=== PATIENT | male | born 1930 | race Caucasian/White ===

== ENCOUNTER 2019-01-11 13:12 | Observation (INO) ==
[2019-01-11] MEDS ORDERED: NS 500 ML IV ONE (13:33)
[2019-01-11 14:13] LABS: BASO# 0.03 X1000 (0.0-0.2); BASO% 0.3 % (0.0-0.8); EOS% 2.5 % (0.0-10.0); HEMATOCRIT 40.3 % (42.0-52.0); IMM GRAN# 0.04 X1000 (0.0-0.04); IMM GRAN% 0.3 % (0.0-0.5); LYMPH# 4.05 X1000 (1.2-3.4); LYMPH% 34.4 % (20.5-51.1); MCH 30.9 PG (27-31); MCHC 32.3 g/dL (33-37); MCV 95.7 FL (81-99); MONO# 0.85 X1000 (0.11-0.59); MONO% 7.2 % (1.7-9.3); MPV 9.2 FL (7.4-10.4); NEUT% 55.3 % (42.2-75.2); PLT 182 X1000 (130-400); RBC 4.21 XMIL (4.7-6.1); RDW 13.5 % (11.5-14.5); WBC 11.77 X1000 (4.8-10.8)
[2019-01-11 14:36] LABS: ALBUMIN 3.9 g/dL (3.5-5.0); CALCIUM 9.4 mg/dL (8.8-10.2); CREATININE 3.4 mg/dL (0.7-1.2); POTASSIUM 4.5 mmol/L (3.5-5.1); TOTAL BILIRUBIN 0.4 mg/dL (0.20-1.00); TOTAL PROTEIN 6.3 g/dL (6.3-8.3)
[2019-01-11 14:37] LABS: AMYLASE 45 U/L (20-200); CK PROFILE 104 U/L (24-204)
--- NOTE | 2019-01-11 14:44 | Diag Imaging Result Doc PS360 ---
EXAM: CT HEAD W/O CONTRAST - 01/11/2019 HISTORY: syncope TECHNIQUE: CT head without contrast COMPARISON: None. FINDINGS: There are some generalized atrophic changes. There are abmo-vy-siwlqqvd chronic appearing microvascular ischemic changes. There is a chronic appearing lacunar infarct near the superior margin of the basal ganglia on the left. There is no indication of recent infarct, although acute infarcts may not be immediately visible. There are bilateral basal ganglia calcifications consistent with chronic process. There is no evidence of intracranial hemorrhage, mass effect, or midline shift. There is no evidence of skull fracture. Visualized portions of paranasal sinuses and mastoid air cells appear clear. IMPRESSION: Atrophic changes and chronic ischemic changes. No visible acute intracranial abnormality. No hemorrhage or mass effect. This exam was performed using automated exposure control, adjustment of mA or kV according to patient size, and/or use of iterative reconstruction technique. Electronically signed by Kirk Townsend 01/11/2019 2:42 PM
[2019-01-11 15:25] LABS: BILIRUBIN URINE NEGATIVE (NEGATIVE); BLOOD URINE 1+ (NEGATIVE); CLARITY CLEAR (CLEAR); COLOR YELLOW; GLUCOSE URINE NEGATIVE (NEGATIVE); KETONE URINE TRACE mg/dL (NEGATIVE); LEUKOCYTES URINE TRACE (NEGATIVE); NITRITE URINE NEGATIVE (NEGATIVE); PH URINE 6.5; PROTEIN URINE 1+(30 mg/dL) mg/dL (NEGATIVE); UROBILINOGEN URINE NORMAL
[2019-01-11 15:27] LABS: URINE BACTERIA 1+ /HFP; URINE CAST NONE SEEN /LPF; URINE CRYSTAL NONE SEEN /HPF; URINE EPITHELIAL CELLS <10 /HPF (<10); URINE RBC <10 /HPF (<10); URINE SOURCE CLEAN CATCH; URINE WBC <10 /HPF (<10); URINE YEAST NONE SEEN /HPF
[2019-01-11] MEDS ORDERED: NS 1,000 ML IV ONE (15:46)
[2019-01-11] MEDS ORDERED: TYLENOL PO PRN (15:59)
[2019-01-11] MEDS ORDERED: ZOFRAN IV PRN (15:59)
--- NOTE | 2019-01-11 18:10 | PROVIDER DOCUMENTATION ---
This chart was entered by Anisha Leiva Scribe, acting as scribe for Reyna Barber MD. HPI-Syncope/Dizziness - General Chief Complaint: Dizziness Stated Complaint: ABNORMAL LABS Time Seen by Provider: 01/11/19 13:32 Source: patient Allergies/Adverse Reactions: Patient Allergies Allergy/AdvReac Type Severity Reaction Status Date / Time No Known Allergies Allergy Verified 01/11/19 13:27 Home Medications: Home Medication List Medication Instructions Recorded Confirmed Last Taken Type Gabapentin 300 mg PO BID 05/20/14 01/11/19 04/08/17 08:00 History Hydrochlorothiazide 12.5 mg PO DAILY 01/11/19 01/11/19 Unknown History Losartan Potassium 100 mg PO DAILY 01/11/19 01/11/19 Unknown History Metoprolol [Lopressor] 25 mg PO DAILY 01/11/19 01/11/19 Unknown History Spironolactone 25 mg PO DAILY 01/11/19 01/11/19 Unknown History - History of Present Illness-Syncope/Dizzy Nature of Presenting Problem: Patient is a 88 year old male who presents with son for syncope. Son states patient has been dizzy, weakness and have a poor appetite. Son reports symptoms are gradually worsening. Onset/Duration: reports: gradual Timing: reports: still present Symptoms prior to episode: reports: other (dizziness and weakness) Context: reports: unknown Loss of Consciousness: unsure Current Symptoms: reports: weakness, dizzy - Dizziness Severity in ED: reports: mild Dizziness Related Current/Associated Symptoms: reports: weakness, dizzy Review of Systems - Adult - REVIEW OF SYSTEMS - ADULT ROS:: ROS per family (son) Constitutional: reports: no symptoms reported Eyes: reports: no symptoms reported Ears, Nose, Mouth & Throat: reports: no symptoms reported Cardiovascular: reports: no symptoms reported Respiratory: reports: no symptoms reported Gastrointestinal: reports: see HPI, poor appetite. denies: abdominal pain, nausea, vomiting Genitourinary: reports: no symptoms reported Musculoskeletal: reports: see HPI, muscle weakness. denies: back pain, neck pain Integumentary: reports: no symptoms reported Neurological: reports: see HPI, dizziness/vertigo (dizziness), syncope. denies: headache/migraines Psychiatric: reports: no symptoms reported Endocrine: reports: no symptoms reported Hematologic/Lymphatic: reports: no symptoms reported Allergic/Immunologic: reports: no symptoms reported All Other Systems: Reviewed and Negative Past History - Adult - PAST MEDICAL HISTORY-ADULT Review of Records: reports: Old Records Reviewed, Nursing Assessment Review, Medications Reviewed, Social history reviewed & non-contributory. Major Childhood Illnesses: reports: denies history Cardiovascular: reports: HTN Respiratory: reports: denies history Gastrointestinal: reports: cancer, GERD Obstetrical/Gynecological: reports: denies history Genitourinary: reports: denies history Musculoskeletal: reports: denies history Neurological: reports: TIA Psychiatric: reports: denies history Endocrine/Immune: reports: denies history Other Conditions: reports: denies history - PRIOR SURGERIES/PROCEDURES Surgical/Procedure History: reports: reviewed, not pertinent - IMMUNIZATION STATUS Childhood Immunizations: See Nurse Assessment Flu Vaccine: See Nurse Assessment - FAMILY HISTORY Family History: reviewed, not pertinent - SOCIAL HISTORY Smoking: cigarettes (former) Substance Use: denies Physical Exam-General - PHYSICAL EXAM-ADULT Initial Vital Signs Reviewed: Yes - CONSTITUTIONAL General Appearance: appears well, alert, no apparent distress. negative: lethargic - HEAD, EARS, NOSE, MOUTH & THROAT HENMT: normocephalic/atraumatic, moist mucous membranes. negative: angioedema - RESPIRATORY Respiratory: chest non-tender, lungs clear, normal breath sounds. negative: crackles, stridor - CARDIOVASCULAR Cardiovascular: normal peripheral pulses, regular rate, rhythm. negative: tachycardia - GASTROINTESTINAL (ABDOMEN) Abdominal Exam: normal bowel sounds, non tender, soft. negative: guarding, rebound - MUSCULOSKELETAL Extremity: normal inspection. negative: deformity, erythema - SKIN Integumentary: normal color, normal turgor, warm/dry. negative: diaphoresis, jaundice, rash - NEUROLOGIC Neurologic: grossly normal. negative: aphasia, facial droop - PSYCHIATRIC Psych/Mental Status: normal mood/affect, oriented x 3. negative: anxious Progress - PLAN OF CARE/RESULTS Progress/Plan/Lab Results: Vital Signs - 8 hr 01/11/19 13:20 01/11/19 17:51 Temperature 97.7 F Pulse Rate 105 H 72 Respiratory Rate 18 24 Blood Pressure 125/76 155/102 O2 Sat by Pulse Oximetry 97 96 Laboratory Results - last 24 hr 01/11/19 01/11/19 01/11/19 14:00 14:00 14:00 WBC 11.77 H RBC 4.21 L Hgb 13.0 L Hct 40.3 L MCV 95.7 MCH 30.9 MCHC 32.3 L RDW Std Deviation 13.5 Plt Count 182 MPV 9.2 Immature Gran % (Auto) 0.3 Neut % (Auto) 55.3 Lymph % (Auto) 34.4 Island % (Auto) 7.2 Eos % (Auto) 2.5 Baso % (Auto) 0.3 Immature Gran # (Auto) 0.04 Neut # (Auto) 6.50 Lymph # (Auto) 4.05 H Island # (Auto) 0.85 H Eos # (Auto) 0.30 Baso # (Auto) 0.03 Sodium Potassium Chloride Carbon Dioxide Anion Gap BUN Creatinine Estimated GFR/1.73 m2 BUN/Creatinine Ratio Glucose POC Glucose Calculated Osmolality Calcium Total Bilirubin AST ALT Alkaline Phosphatase Creatine Kinase 104 Troponin T 0.013 Total Protein Albumin Globulin Albumin/Globulin Ratio Amylase 45 Lipase Urine Source Urine Color Urine Clarity Urine pH Ur Specific [place] Urine Protein Urine Ketones Urine Blood Urine Nitrite Urine Bilirubin Urine Urobilinogen Urine Microscopic RBC Urine WBC Urine Microscopic WBC Ur Epithelial Cells Urine Crystals Urine Bacteria Urine Casts Urine Yeast Urine Glucose 01/11/19 01/11/19 01/11/19 14:00 14:44 15:10 WBC RBC Hgb Hct MCV MCH MCHC RDW Std Deviation Plt Count MPV Immature Gran % (Auto) Neut % (Auto) Lymph % (Auto) Island % (Auto) Eos % (Auto) Baso % (Auto) Immature Gran # (Auto) Neut # (Auto) Lymph # (Auto) Island # (Auto) Eos # (Auto) Baso # (Auto) Sodium 142 Potassium 4.5 Chloride 107 Carbon Dioxide 23 L Anion Gap 12 BUN 38 H Creatinine 3.4 H Estimated GFR/1.73 m2 17 BUN/Creatinine Ratio 11 Glucose 131 H POC Glucose 115 H Calculated Osmolality 294 Calcium 9.4 Total Bilirubin 0.40 AST 16 ALT 12 Alkaline Phosphatase 81 Creatine Kinase Troponin T Total Protein 6.3 Albumin 3.9 Globulin 2.0 Albumin/Globulin Ratio 2.0 Amylase Lipase 44 Urine Source CLEAN CATCH Urine Color YELLOW Urine Clarity CLEAR Urine pH 6.5 Ur Specific [place] 1.020 Urine Protein 1+(30 mg/dL) A Urine Ketones TRACE Urine Blood 1+ A Urine Nitrite NEGATIVE Urine Bilirubin NEGATIVE Urine Urobilinogen NORMAL Urine Microscopic RBC <10 Urine WBC TRACE A Urine Microscopic WBC <10 Ur Epithelial Cells <10 Urine Crystals NONE SEEN Urine Bacteria 1+ Urine Casts NONE SEEN Urine Yeast NONE SEEN Urine Glucose NEGATIVE Orders Category Date Time Status Admit - [facility] Routine AdmDCTranf 01/11/19 15:57 Active Activity - Up with Assistance ORDERED Care 01/11/19 15:59 Active DVT/PE Risk Assess/Protocol [QM] ORDERED Care 01/11/19 15:59 Active Intake and Output-Strict ORDERED Care 01/11/19 15:59 Active Orthostatic Vital Signs NOW Care 01/11/19 13:27 Active Saline Loc DIRECTED Care 01/11/19 13:32 Active Vital Signs Order Q 6-HR ASSESS Care 01/11/19 15:59 Active Z-Document. for Tele Applied ORDERED Care 01/11/19 16:00 Active Heart Healthy Diet Diet 01/11/19 16:[address] HEAD W/O CONTRAST [CT] Stat Exams 01/11/19 14:15 Completed AMYLASE [CHEM] Stat Lab 01/11/19 14:00 Completed CBC WITH DIFF [HEME] DAILY Lab 01/12/19 06:00 Ordered CBC WITH DIFF [HEME] DAILY Lab 01/13/19 06:00 Ordered CBC WITH DIFF [HEME] DAILY Lab 01/14/19 06:00 Ordered CBC WITH ELECTRONIC DIFF [HEME] Stat Lab 01/11/19 14:00 Completed CK PROFILE [SP CHEM] Stat Lab 01/11/19 14:00 Completed COMPREHENSIVE METABOLIC PANEL [CHEM] Stat Lab 01/11/19 14:00 Completed LIPASE [CHEM] Stat Lab 01/11/19 14:00 Completed RENAL PROFILE [CHEM] DAILY Lab 01/12/19 06:00 Ordered RENAL PROFILE [CHEM] DAILY Lab 01/13/19 06:00 Ordered RENAL PROFILE [CHEM] DAILY Lab 01/14/19 06:00 Ordered RENAL PROFILE [CHEM] DAILY Lab 01/15/19 06:00 Ordered TROPONIN T Q6H Lab 01/11/19 16:30 Ordered TROPONIN T Q6H Lab 01/11/19 22:30 Ordered TROPONIN T Q6H Lab 01/12/19 04:30 Ordered TROPONIN T Stat Lab 01/11/19 14:00 Completed URINE CULTURE [RM] Routine Lab 01/11/19 15:27 Ordered ua [URINALYSIS PL W/POSS RFLX CULT] [URINALYSIS] Stat Lab 01/11/19 15:10 Completed 0.9% Sodium Chloride Inj [Ns] 1,000 ml Med 01/11/19 16:00 Active IV 75 mls/hr 0.9% Sodium Chloride Inj [Ns] 1,000 ml Med 01/11/19 15:46 Discontinued IV 999 mls/hr 0.9% Sodium Chloride Inj [Ns] 500 ml Med 01/11/19 13:33 Discontinued IV 999 mls/hr Acetaminophen [Tylenol] Med 01/11/19 15:59 Active 650 mg PO Q6H PRN PRN Heparin Med 01/11/19 16:00 Active 5,000 unit SUBQ Q12H Omeprazole [Prilosec] Med 01/12/19 07:00 Active 40 mg PO DAILY@0700 Ondansetron [Zofran] Med 01/11/19 15:59 Active 4 mg IV Q4H PRN PRN Telemetry [OM.EQ] Routine Oth 01/11/19 15:59 Active Carotid Ultrasound Routine Ther 01/11/19 16:02 Completed EKG [EKG] Stat Ther 01/11/19 13:28 Ordered Physical Therapy Eval/Treatment [OM.PT] Routine Ther 01/11/19 15:59 Active Transfer/Admit Order [TRANSFER] Routine Transfer 01/11/19 15:56 Ordered Result Diagrams: 01/11/19 14:00 01/11/19 14:00 - EKG 1 Time of EKG reading by physician:: 14:41 EKG Read and Signed by:: Reyna Barber EKG Interpretation (*Must complete 3 of following elements*): Abnormal Rate: 83 Rhythm: sinus rhythm with frequent premature ventricular complexes Mascot: normal QRS: RBB OH Interval: normal Comments: abnormal ECG - CT/MRI 1 CT Study: Head Impression: See EMR Report ( EXAM: CT HEAD W/O CONTRAST - 01/11/2019 HISTORY: syncope TECHNIQUE: CT head without contrast COMPARISON: None. FINDINGS: There are some generalized atrophic changes. There are qtva-oy-[id number] chronic appearing microvascular ischemic changes. There is a chronic appearing lacunar infarct near the superior margin of the basal ganglia on the left. There is no indication of recent infarct, although acute infarcts may not be immediately visible. There are bilateral basal ganglia calcifications consistent with chronic process. There is no evidence of intracranial hemorrhage, mass effect, or midline shift. There is no evidence of skull fracture. Visualized portions of paranasal sinuses and mastoid air cells appear clear. IMPRESSION: Atrophic changes and chronic ischemic changes. No visible acute intracranial abnormality. No hemorrhage or mass effect. This exam was performed using automated exposure control, adjustment of mA or kV according to patient size, and/or use of iterative reconstruction technique. Electronically signed by Kirk Townsend 01/11/2019 2:42 PM 01/11/19 1442 Interpreting Physician: Kirk Townsend MD Dictated Date/Time: 01/11/19 1438 cc: Reyna Barber MD; Carmen Ellis) - CONSULTS/PCP/HOSPITALIST Notification #1 *Consult/PCP/Hospitalist*: Dr. Astorga Time Discussed: 16:06 Reason/Comments: Dr. Barber consulted with Dr. Astorga about patient Departure - Departure Date of Disposition Decision: 01/11/19 Time of Disposition Decision: 18:09 DIAGNOSIS: Syncope Qualifiers: Syncope type: unspecified Qualified Code(s): R55 - Syncope and collapse Disposition: ADMITTED INPATIENT 09 Certified Medical Emergency: Emergent Condition: Good Referrals and Follow-Ups: Carmen Ellis [Primary Care Provider] - - Critical Care Note This patient required my direct & personal management of CC.: No Attestation - Physician/ CAROLYNN Attestation Patient care was provided by Advanced Practice Provider:: No The physician spent face to face time with patient:: Yes Advanced Practice Provider documentation review:: Supervising physician onsite and consulted in the evaluation and care of this patient. The physician did have a face to face encounter with the patient. This chart was documented by the indicated scribe, (Anisha Leiva Scribe) and accurately reflects the services I performed and decisions made by me, Reyna Barber MD, as attested by the provider's signature.
--- NOTE | 2019-01-11 18:28 | EKG Report ---
Test Performed on : 01/11/2019 2:41:13 PM Test Reason : dizziness Blood Pressure : / mmHG Vent. Rate : 083 BPM Atrial Rate : 083 BPM P-R Int : 132 ms QRS Dur : 124 ms QT Int : 412 ms P-R-T Axes : 040 065 035 degrees QTc Int : 484 ms Sinus rhythm. with frequent premature ventricular complexes. Right bundle branch block Abnormal ECG When compared with ECG of 20-MAY-2014 11:26, premature ventricular complexes. are now present aberrant conduction. is no longer present Right bundle branch block is now present Unconfirmed Result
--- NOTE | 2019-01-11 19:26 | Vascular Study Report ---
EXAM: Carotid Ultrasound INDICATION: syncope TECHNIQUE: COMPARISON: None. FINDINGS: Right: There is extensive atherosclerotic calcification involving the right carotid bulb as well as the proximal ECA. The peak systolic velocity measures 52, 99, 78, 186, 105, 49, and 202 cm/s at the right subclavian artery, CCA, bifurcation, proximal ICA, mid ICA, distal ICA, and ECA, respectively. There is antegrade flow in the vertebral artery. The carotid ratio is 1.88. Left: There is soft atherosclerotic plaque in the mid left ICA that appears to be approximately 50% narrowing by grayscale imaging. The peak systolic velocity measures the peak systolic velocity measures 179, 79, 78, 50, 101, 58, and 138 cm/s at the left subclavian artery, CCA, bifurcation, proximal ICA, mid ICA, distal ICA, and ECA, respectively. There is antegrade flow in the vertebral artery. The carotid ratio is 1.27. IMPRESSION: 1.Extensive atherosclerotic calcification at the right carotid bulb with an estimated 60-79% stenosis based on flow dynamics. 2.Soft atherosclerotic plaque at the mid left ICA with approximately 50% luminal narrowing based on grayscale imaging. Electronically signed by Marino Hu 01/11/2019 7:24 PM
--- NOTE | 2019-01-11 21:34 | HISTORY AND PHYSICAL ---
PRIMARY CARE PROVIDERS: RAMON Beltran, and Radha Ellis MD. ONCOLOGIST IN THE PAST: Dr. Tellez. CHIEF COMPLAINT: Increased sleepiness, decreased appetite. HISTORY OF PRESENT ILLNESS: Mr. Davin Morrison is an 88-year-old male with a medical history of TIA and bilateral carotid endarterectomy. Also with history of CKD and an atrophic left kidney, which is a poorly functioning kidney. He presents to [facility] ER with complaints of increasing sleep and decrease in his appetite for at least 3 to 4 weeks. He has also had some complaints of dizziness, some near falls and balance issues along with black diarrhea stools at night, which he states that is somewhat resolving. The son at the bedside states he does not take in a whole lot of fluids, only about 1 bottle of water per day. He admits to having weight loss, at least 15 pounds in the last month. Has some left ankle swelling, but that tends to be chronic, so really he has acute kidney injury on CKD secondary to dehydration, probably adding to his lightheadedness and dizziness and near fall spells. Creatinine currently is 3.4. His baseline tends to run around 2.1 to 2.3. He denies having any shortness of breath or coughing up any phlegm. No nausea or vomiting. No fever or chills. No other complaints at all. PAST MEDICAL HISTORY: 1. Carotid stenosis with bilateral carotid endarterectomy. 2. Abdominal lymphoma diagnosed in 2010, treated with chemo and radiation. 3. Colon cancer in 1984 with colectomy. 4. Vitamin B12 deficiency. Receives shots every Tuesday for 3 months now. 5. 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 6. Hypertension. 7. TIA with no residual. That was in the . 8. 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 9. GERD. 10. 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 SOCIAL HISTORY: Quit smoking in 1984, but prior to that he was a 2-yirg-orb-day smoker since his early 20s. No chewing tobacco. Rarely drinks wine but does only if family buys it for him, which is not very often. Denies any illicit drug use. He is retired from [employer]. He is ex [employer]. Was in the [place] War at 1 time. FAMILY HISTORY: Mother: No medical conditions. Father had heart disease in his 60s. ALLERGIES: No known drug allergies. HOME MEDICATIONS: Not reconciled, but were listed as aspirin, Neurontin, pravastatin, and timolol. REVIEW OF SYSTEMS: Fourteen-point review of systems is completed, and all are negative except for those mentioned above in the HPI. PHYSICAL EXAMINATION: VITAL SIGNS: Temperature 97.7, heart rate 105, respiratory rate 18, blood pressure 125/76, O2 saturation 97% on room air. He is 5 feet 10 inches tall, weight 196 pounds. BMI is 28.1. GENERAL: Mr. Davin Morrison is an 88-year-old male. He is in no acute distress.. He is able answer questions appropriately, mostly. There are some questions he seems like he is not quite 100% on. HEENT: Atraumatic, normocephalic. The right pupil is constricted. Left pupil is about a 4 and is reactive. Extraocular movements intact. Mucous membranes are dry. NECK: Trachea midline. CARDIOVASCULAR: S1, S2. Regular rate and rhythm. No rubs, gallops, murmurs. No lower extremity edema. Has +2 dorsalis and radial pulses. Negative JVD or carotid bruits. PULMONARY: Clear to auscultation. Bilateral breath sounds. No accessory muscle use or work of breathing noted. GI: Soft, nontender, nondistended. Positive bowel sounds x4. EXTREMITIES: Moves all extremities equally. Decreased range of motion. NEUROLOGIC: A and O x3. Follows commands. Sensory is intact except for the left lower extremity. He says late in the evenings he gets a little numbness in the left lower extremity and currently is experiencing that right now. SKIN: Warm, dry, intact. LABORATORY DATA: White blood cells 11,000, hemoglobin 13, hematocrit 40, platelet count 182,000. Sodium 142, potassium 4.5, BUN 38, creatinine 3.4, glucose 131, calcium 9.4. Bilirubin 0.40, AST 16, ALT 12. CK 104, troponin 0.013. Albumin 3.9. Amylase 45, lipase 44. Urinalysis: 1+ protein, 1+ blood, trace white blood cells, 1+ bacteria. IMAGING: Head CT: Atrophic changes and chronic ischemic changes. No visible acute intracranial abnormality. It did show there is a chronic-appearing lacunar infarct near the superior margin of the basal ganglia on the left. ASSESSMENT AND PLAN: 1. Currently complains of increase in sleepiness and decrease in appetite with a weight loss. It is really unclear what could be causing this. It may possibly even some metabolic encephalopathy, as he has become dehydrated and developed acute kidney injury. 2. Acute kidney injury with chronic kidney disease stage 3. He will get IV fluid hydration for this. We will hold any nephrotoxic medications. 3. Dehydration. He will be on IV fluids. 4. History of cerebrovascular accident and transient ischemic attack in the past along with bilateral carotid endarterectomies. Neurologic exam is currently normal. No abnormalities found, other than he does have a little bit of numbness in the left lower extremity. 5. History of abdominal lymphoma along with colon cancer in the past. 6. Hypertension. Continue home medications. 7. 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 8. Gastroesophageal reflux disease. 9. Deep venous thrombosis prophylaxis, sequential compression devices. Dictated by RAMON Hawkins for Ulises Lomax MD Addendum: Patient seen and examined by myself. Agree with RAMON note. It reflects my assessment and plan. Patient is being admitted to hospital for acute on chronic kidney disease most likely due to volume depletion so will start IV fluids and check BMP daily. cc: RAMON Hawkins MD [facility]
[2019-01-11] MEDS: NEURONTIN PO SCH (23:03)
[2019-01-11] MEDS: NS 1,000 ML IV SCH (23:07)
[2019-01-11] MEDS: TIMOPTIC 0.5% OPH SOLUTION BOTH EYES SCH (23:07)
[2019-01-12] MEDS: HEPARIN SUBQ SCH ×2 (04:11→04:15)
[2019-01-12 04:27] LABS: BASO# 0.04 X1000 (0.0-0.2); BASO% 0.4 % (0.0-0.8); EOS# 0.45 X1000 (0.0-0.7); EOS% 4.3 % (0.0-10.0); HEMATOCRIT 39.1 % (42.0-52.0); HEMOGLOBIN 12.4 g/dL (14.0-18.0); IMM GRAN# 0.01 X1000 (0.0-0.04); IMM GRAN% 0.1 % (0.0-0.5); LYMPH# 4.86 X1000 (1.2-3.4); LYMPH% 46.2 % (20.5-51.1); MCH 30.4 PG (27-31); MCHC 31.7 g/dL (33-37); MCV 95.8 FL (81-99); MONO# 0.67 X1000 (0.11-0.59); MONO% 6.4 % (1.7-9.3); MPV 9.1 FL (7.4-10.4); NEUT% 42.6 % (42.2-75.2); PLT 174 X1000 (130-400); RBC 4.08 XMIL (4.7-6.1); RDW 13.3 % (11.5-14.5); WBC 10.53 X1000 (4.8-10.8)
[2019-01-12 05:37] LABS: ALBUMIN 3.6 g/dL (3.5-5.0); PHOSPHORUS 3.5 mg/dL (2.7-4.5)
[2019-01-12 06:27] LABS: CREATININE 2.7 mg/dL (0.7-1.2)
[2019-01-12 06:47] LABS: POTASSIUM 4.6 mmol/L (3.5-5.1)
[2019-01-12] MEDS ORDERED: PRILOSEC PO SCH (07:00)
[2019-01-12 08:00] VITALS: BP 177/74
[2019-01-12] MEDS ORDERED: ASPIRIN EC PO SCH (09:00)
[2019-01-12] MEDS ORDERED: PRAVACHOL PO SCH (09:00)
[2019-01-12] MEDS: TIMOPTIC 0.5% OPH SOLUTION BOTH EYES SCH (10:37)
[2019-01-12] MEDS: NEURONTIN PO SCH (10:39)
[2019-01-12] MEDS: NS 1,000 ML IV SCH (10:39)
--- NOTE | 2019-01-12 17:56 | ECHO REPORT ---
ORDER DATE: 01/11/2019 INDICATION: Syncope, irregular heartbeat. M-MODE MEASUREMENTS: Left ventricle end diastole: 4.0. Left ventricle end systole: 1.8. Posterior wall: 1.0. Interventricular septum: 1.0. Left atrium: 2.6. Aortic diameter: 3.5. SUMMARY OF 2-DIMENSIONAL IMAGIN. Left ventricular function is normal. Ejection fraction is estimated at 65% to 70%. The cardiac cycles are somewhat irregular. The patient seems to have frequent PACs. 2. The aortic valve appears to be unremarkable. Color flow mapping within normal range. 3. The pulmonic valve also is probably unremarkable. There is a mild to moderate degree of regurgitation. 4. Pulmonary diastolic pressure appears to be on the order of 17 mmHg. 5. The aortic valve has 3 cusps. Color flow mapping unremarkable. 6. The mitral valve looks grossly normal. Color flow mapping unremarkable. 7. Pulsed wave Doppler of mitral inflow shows reversal of the E/A ratio. 8. Tissue Doppler of septal and lateral mitral annulus averages 6 cm. There is no definite diastolic dysfunction. 9. Pulmonary venous flow appears to be normal. 10.The atria appear to be normal. 11.The right-sided chambers appear to be slightly generous in size, especially the right ventricle and right atrium. 12.The tricuspid valve shows a minimal degree of regurgitation. Pulmonary pressure appears to be grossly within normal limits. 13.Optison was injected to optimize visualization of the endocardium. That confirmed that the left ventricular ejection fraction is excellent. 13.There are no masses and no thrombus. Clinical correlation recommended. cc: MD Ulises Boo MD
--- NOTE | 2019-01-13 06:16 | DISCHARGE SUMMARY ---
ADMISSION DATE: 01/11/2019 DISCHARGE DATE: 01/12/2019 ADMISSION DIAGNOSES: 1. Currently, complains of increased sleepiness and decreased appetite with a weight loss, possible metabolic encephalopathy. 2. Acute kidney injury with chronic kidney disease stage 3. 3. Dehydration. 4. History of cerebrovascular accident and transient ischemic attack in the past. 5. 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 6. Hypertension. 7. 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 8. Gastroesophageal reflux disease. DISCHARGE DIAGNOSES: 1. Still complaints of sleepiness, and decreased appetite weight loss, but that he actually feels a little more alert today. 2. Acute kidney injury with chronic kidney disease stage 3, improved. 3. Dehydration. Intravenous fluids improved this as well. CONSULTATIONS: None. SURGERIES AND PROCEDURES: None. HOSPITAL COURSE: Mr. Davin Morrison is an 88-year-old male presented to the emergency room here at [facility] with complaints of increasing sleepiness and decreased appetite for at least 3 to 4 weeks. He also has some complaints of dizziness, some near falls, and balance issues with black diarrhea stools at night which that apparently had already started resolving. Son at the bedside states that he does not really have a whole lot of fluid intake, maybe only 1 bottle of water a day. Also, he complains of 15 pound weight loss in the past month. Left ankle swelling that is chronic, but presents with dehydration and acute kidney injury on CKD. He received IV fluid hydration. He is feeling better, and he is going to be discharged. DISCHARGE VITAL SIGNS: Temperature 97.8 degrees, heart rate 75, respiratory rate 20, blood pressure 177/74, and O2 saturation 98% on room air. DISCHARGE LABORATORY DATA: White blood cells 10,000, hemoglobin 10, hematocrit 39, and platelet count 174,000. Sodium 143, potassium 4.6, BUN 28, creatinine 2.7, glucose 113, calcium 9.0, and phosphorus 3.5. Troponin is less than 0.01. Albumin 3.6. Urinalysis: Urine culture negative. IMAGIN. Head CT negative for any acute findings. 2. Carotid ultrasound 60 to 79 percent of the right carotid, 50% on left carotid. 3. EKG sinus rhythm with PVCs, rate 83, and QTc 484. DISCHARGE MEDICATIONS: 1. Neurontin 300 mg p.o. twice daily. 2. Hydrochlorothiazide 12.5 mg p.o. daily. 3. Metoprolol 25 mg p.o. daily. 4. Losartan potassium 100 mg p.o. daily. 5. Spironolactone 25 mg p.o. daily. 6. Aspirin 81 mg p.o. daily. DISCHARGE DIET: Heart healthy. DISCHARGE ACTIVITY: As tolerated with home health physical therapy. DISCHARGE PHYSICIAN FOLLOW UP: Dr. Ellis. DISCHARGE INSTRUCTIONS: If your condition changes, contact physician and/or return to the emergency department. Changes may include, but not limited to shortness of breath, increased fatigue, excessive bleeding, unexplained weight loss or gain, unmanageable pain, signs or symptoms of infection. DISCHARGE DISPOSITION: Home with home health. Dictated by RAMON Hawkins for Ulises Lomax MD Addendum: patient seen and examined by myself. Agree with RAMON note. It reflects my assessment and plan. Patient is being discharged in stable condition. Will be seen by PCP in a week. cc: RAMON Hawkins MD [facility]
== END 2019-01-12 17:46 | disposition home health service (06) ==
LOC: P.ED 13:12 → P.MEDSURG 13:12
PROVIDERS: ATTEND Internal Medicine

== ENCOUNTER 2019-02-27 12:17 | Observation (INO) ==
[2019-02-27 13:32] LABS: BASO# 0.04 X1000 (0.0-0.2); BASO% 0.4 % (0.0-0.8); EOS% 3.2 % (0.0-10.0); HEMATOCRIT 40.1 % (42.0-52.0); HEMOGLOBIN 12.5 g/dL (14.0-18.0); IMM GRAN# 0.03 X1000 (0.0-0.04); IMM GRAN% 0.3 % (0.0-0.5); LYMPH# 3.36 X1000 (1.2-3.4); LYMPH% 36.2 % (20.5-51.1); MCH 29.7 PG (27-31); MCHC 31.2 g/dL (33-37); MCV 95.2 FL (81-99); MONO# 0.61 X1000 (0.11-0.59); MONO% 6.6 % (1.7-9.3); NEUT# 4.94 X1000 (1.4-6.5); NEUT% 53.3 % (42.2-75.2); PLT 182 X1000 (130-400); RBC 4.21 XMIL (4.7-6.1); RDW 13.7 % (11.5-14.5); WBC 9.28 X1000 (4.8-10.8)
[2019-02-27] MEDS ORDERED: NS 500 ML IV ONE (13:36)
[2019-02-27 13:50] LABS: ALBUMIN 4.1 g/dL (3.5-5.0); CALCIUM 9.1 mg/dL (8.8-10.2); CREATININE 1.8 mg/dL (0.7-1.2); POTASSIUM 4.5 mmol/L (3.5-5.1); TOTAL BILIRUBIN 0.5 mg/dL (0.20-1.00); TOTAL PROTEIN 6.6 g/dL (6.3-8.3)
--- NOTE | 2019-02-27 14:08 | EKG Report ---
Test Performed on : 02/27/2019 1:02:21 PM Test Reason : weakness Blood Pressure : / mmHG Vent. Rate : 070 BPM Atrial Rate : 070 BPM P-R Int : 140 ms QRS Dur : 130 ms QT Int : 452 ms P-R-T Axes : 040 065 050 degrees QTc Int : 488 ms Normal sinus rhythm. Right bundle branch block Abnormal ECG When compared with ECG of 11-JAN-2019 14:41, (Unconfirmed) premature ventricular complexes. are no longer present Unconfirmed Result
[2019-02-27 15:31] LABS: URINE SOURCE CLEAN CATCH
[2019-02-27 15:32] LABS: BILIRUBIN URINE NEGATIVE (NEGATIVE); BLOOD URINE NEGATIVE (NEGATIVE); COLOR YELLOW; GLUCOSE URINE NEGATIVE (NEGATIVE); KETONE URINE NEGATIVE (NEGATIVE); LEUKOCYTES URINE NEGATIVE (NEGATIVE); NITRITE URINE NEGATIVE (NEGATIVE); PROTEIN URINE TRACE mg/dL (NEGATIVE); SP GRAVITY URINE 1.019; TURBIDITY URINE CLEAR (CLEAR); UROBILINOGEN URINE NORMAL (NORMAL)
[2019-02-27 15:34] LABS: UR EPITHELIAL CELLS <10 /HPF (<10); URINE BACTERIA NEGATIVE /HPF; URINE RBC <10 /HPF (<10); URINE WBC <10 /HPF (<10)
[2019-02-27] MEDS ORDERED: LABETALOL IV ONE (16:05)
[2019-02-27] MEDS ORDERED: ZOFRAN IV PRN (16:10)
[2019-02-27 16:54] LABS: TSH 2.12 uIUmL (0.27-4.20)
[2019-02-27] MEDS ORDERED: APRESOLINE IV ONE (16:59)
--- NOTE | 2019-02-27 18:08 | PROVIDER DOCUMENTATION ---
This chart was entered by Salina Martinez Scribe, acting as scribe for Reyna Mo MD. HPI-General Adult - General Chief Complaint: Altered Mental Status Stated Complaint: DEHYDRATED Time Seen by Provider: 02/27/19 12:35 Source: patient, family Allergies/Adverse Reactions: Patient Allergies Allergy/AdvReac Type Severity Reaction Status Date / Time No Known Allergies Allergy Verified 02/27/19 13:18 Home Medications: Home Medication List Medication Instructions Recorded Confirmed Last Taken Type Gabapentin 300 mg PO BID 05/20/14 02/27/19 01/11/19 08:30 History Losartan Potassium 100 mg PO DAILY 01/11/19 02/27/19 01/11/19 08:30 History Metoprolol [Lopressor] 12.5 mg PO DAILY 01/11/19 02/27/19 01/11/19 08:30 History Aspirin EC 81 mg PO QAM tab 01/12/19 02/27/19 Unknown Rx Donepezil HCl 5 mg PO DAILY 02/27/19 02/27/19 Unknown History - History of Present Illness -Gen Adult Nature of Presenting Problems: 88 yowm presents to the ed with his family. family sts pt has had increasing am s, weakness, fatigue, decreased appetite and believe he is dehydrated. pt has hx of UTI and same sx when it occurs. pt on exam is back to a/o x3 and in no distress. Location of Pain/Injury: reports: none Pain Radiation: reports: no radiation Quality of Pain: reports: none Severity: reports: mild Onset/Duration: reports: gradual Timing: reports: intermittent Context/Activities at Onset: reports: light activity Modifying Factors: improves with: nothing Associated Symptoms: reports: fatigue, malaise, weakness, trouble walking (due to fatigue), other (confusion). denies: back/neck pain, chest pain, cough, dizziness, fever/chills, nausea, shortness of breath, syncope, vomiting Similar Symptoms Previously?: Yes (freq UTI) Recently seen or treated by another doctor?: No Review of Systems - Adult - REVIEW OF SYSTEMS - ADULT Constitutional: reports: see HPI, nicole. denies: chills, fever Eyes: reports: no symptoms reported Ears, Nose, Mouth & Throat: reports: no symptoms reported Cardiovascular: reports: see HPI, edema (BLE edema). denies: chest pain, palpitations Respiratory: denies: shortness of breath, wheezing Gastrointestinal: reports: see HPI, poor appetite. denies: abdominal pain, diarrhea, nausea, vomiting Genitourinary: reports: see HPI, frequent UTI's Musculoskeletal: reports: see HPI, muscle weakness (genrealized). denies: back pain, neck pain Integumentary: reports: no symptoms reported Neurological: reports: see HPI, paresthesia (BLE). denies: dizziness/vertigo, headache/migraines Psychiatric: reports: no symptoms reported Endocrine: reports: no symptoms reported Hematologic/Lymphatic: reports: no symptoms reported Allergic/Immunologic: reports: no symptoms reported All Other Systems: Reviewed and Negative Past History - Adult - PAST MEDICAL HISTORY-ADULT Review of Records: reports: Old Records Reviewed, Nursing Assessment Review, Medications Reviewed, Social history reviewed & non-contributory. Major Childhood Illnesses: reports: denies history Cardiovascular: reports: HTN Respiratory: reports: denies history Gastrointestinal: reports: cancer (colon/rectal), GERD Genitourinary: reports: denies history Musculoskeletal: reports: denies history Hand Dominance: Right Handed Neurological: reports: TIA Psychiatric: reports: denies history Endocrine/Immune: reports: denies history Other Conditions: reports: denies history - PRIOR SURGERIES/PROCEDURES Surgical/Procedure History: reports: reviewed, not pertinent - IMMUNIZATION STATUS Childhood Immunizations: See Nurse Assessment Flu Vaccine: See Nurse Assessment - FAMILY HISTORY Family History: reviewed, not pertinent - SOCIAL HISTORY Smoking: quit greater than 1 year Substance Use: denies Alcohol Use Frequency: never Living Situation: family Physical Exam-General - PHYSICAL EXAM-ADULT Initial Vital Signs Reviewed: Yes (noted BP-170/127) - CONSTITUTIONAL General Appearance: appears well, alert, no apparent distress (pt on exam is back to baseline but sx have been intermittent) - EYES Eyes: PERRL/EOMI, pink conjunctivae - HEAD, EARS, NOSE, MOUTH & THROAT HENMT: normocephalic/atraumatic. negative: moist mucous membranes (dry oral) - NECK Neck: non-tender, full range of motion, normal inspection - RESPIRATORY Respiratory: chest non-tender, lungs clear, normal breath sounds, increased rate (22) - CARDIOVASCULAR Cardiovascular: normal peripheral pulses, regular rate, rhythm - CHEST (BREASTS) Chest/Breast: deferred - GASTROINTESTINAL (ABDOMEN) Abdominal Exam: normal bowel sounds, non tender, soft - GENITOURINARY Male Genitalia: deferred Rectal Exam: deferred Hemoccult Exam: deferred - LYMPHATIC Lymphatic: no adenopathy - MUSCULOSKELETAL Back Exam: normal inspection, no CVA tenderness, no vertebral tenderness Extremity: normal range of motion, non-tender, swelling (1+ BLE edema). negative: tenderness - SKIN Integumentary: normal color, normal turgor, warm/dry - NEUROLOGIC Neurologic: grossly normal - PSYCHIATRIC Psych/Mental Status: normal mood/affect, normal thought content, normal thought process, oriented x 3 Progress - PLAN OF CARE/RESULTS Progress/Plan/Lab Results: Vital Signs - 8 hr 02/27/19 12:25 Temperature 97.3 F L Pulse Rate 74 Respiratory Rate 22 Blood Pressure 170/127 O2 Sat by Pulse Oximetry 97 Laboratory Results - last 24 hr 02/27/19 12:32 POC Glucose 103 Orders Category Date Time Status Saline Loc NOW Care 02/27/19 12:43 Active CBC WITH DIFF [HEME] Stat Lab 02/27/19 12:43 Uncollected CK PROFILE [SP CHEM] Stat Lab 02/27/19 12:43 Ordered COMPREHENSIVE METABOLIC PANEL [CHEM] Stat Lab 02/27/19 12:43 Uncollected PRO B-NATRIURETIC PEPTIDE Stat Lab 02/27/19 12:43 Uncollected TROPONIN T Stat Lab 02/27/19 12:43 Ordered EKG [EKG] Stat Ther 02/27/19 12:43 Ordered Result Diagrams: 02/27/19 13:10 02/27/19 13:10 - REASSESSMENT Reassessment #1 Time Reassessed: 14:18 (elevated BP still noted and dr mo is at bedside) Status: unchanged Reassessment #2 Time Reassessed: 15:00 (dr mo at bedside and speaking with pt and family about poc) Status: unchanged - EKG 1 Time of EKG reading by physician:: 13:02 EKG Read and Signed by:: Reyna Mo EKG Interpretation (*Must complete 3 of following elements*): Abnormal Rate: 70 Rhythm: nsr [place]: normal QRS: RBB OR Interval: normal ST Wave: normal - CONSULTS/PCP/HOSPITALIST Notification #1 *Consult/PCP/Hospitalist*: hospitalist dr larson Time Discussed: 15:58 (spoke with guille) Consult Disposition: Admit Departure - Departure Date of Disposition Decision: 02/27/19 Time of Disposition Decision: 15:03 DIAGNOSIS: Generalized weakness HTN (hypertension) Qualifiers: Hypertension type: unspecified Qualified Code(s): I10 - Essential (primary) hypertension Disposition: ADMITTED INPATIENT 09 Certified Medical Emergency: Emergent Condition: Good Referrals and Follow-Ups: Radha Ellis MD [Primary Care Provider] - - Critical Care Note This patient required my direct & personal management of CC.: Yes Total Time (mins): 37 Critical Care Statement: This patient required my direct personal management to treat or rule out processes, the absence of which, could potentiallly result in sudden, clinically significant life or limb threatening deterioration. Attestation - Physician/ CAROLYNN Attestation Patient care was provided by Advanced Practice Provider:: No The physician spent face to face time with patient:: Yes Advanced Practice Provider documentation review:: Supervising physician onsite and consulted in the evaluation and care of this patient. The physician did have a face to face encounter with the patient. This chart was documented by the indicated scribe, (Salina Martinez Scribe) and accurately reflects the services I performed and decisions made by me, Reyna Mo MD, as attested by the provider's signature.
[2019-02-27] MEDS ORDERED: APRESOLINE IV PRN (18:30)
--- NOTE | 2019-02-27 19:15 | Diag Imaging Result Doc PS360 ---
EXAM: FLAT/UPRIGHT ABD/1 VIEW CHEST - 02/27/2019 HISTORY: weakness, recent URI, diarrhea TECHNIQUE: Portable supine and upright abdomen one view chest COMPARISON: 04/20/2017 chest two views FINDINGS: The bowel gas pattern appears nonspecific and nonobstructive. There is no free air identified. There is a surgical clip at the right upper quadrant. Upright chest shows stable borderline cardiomegaly. There are stable left midlung granuloma from old granulomatous disease. There is pleural thickening at the left base. There is no acute consolidation, substantial pleural effusion, or pneumothorax identified. IMPRESSION: Nonspecific bowel gas pattern. No discrete evidence of acute cardiopulmonary disease. Electronically signed by Kirk Townsend 02/27/2019 7:13 PM
[2019-02-27] MEDS: NEURONTIN PO SCH (20:42)
--- NOTE | 2019-02-28 01:52 | HISTORY AND PHYSICAL ---
CHIEF COMPLAINT: Generalized weakness, confusion. HISTORY OF PRESENT ILLNESS: This is an 88-year-old gentleman with a history of hypertension, colon cancer in 1988, status post colon resection and radiation and dementia. He presents to the emergency room with his children complaining of weakness, inability to stand and walk, and diarrhea over the last 2 to 3 days. The patient is unable to give a detailed history, so the son and daughter assist in the interview. Mr. Morrison was diagnosed with an upper respiratory infection about 2 to 3 weeks ago. He was given antibiotics per his primary care physician and the family stated that he seemed to be doing better, but Tuesday he was unable to stand and walk. The son states he was having to pick him up without his walker and much assistance. Over the last 36 hours, he has become increasingly confused and more weak. The son stated he had to pick him up and put him to bed last night, although a few hours later he was able to get out of bed with assistance. He stated that they began to notice his confusion, stating that he tried to walk into a closet to urinate. He was unsure where the bathroom was in his home. As this has progressed, they brought him in for evaluation. They do report that he has had some diarrhea over the last month, it has not been consistent and they denied any black or bloody stools. He has had some incontinence and because of this, he has had some irritation to the folds of his buttocks. PAST MEDICAL HISTORY: 1. Chronic kidney disease stage 3. 2. History of CVA and TIA in the past. 3. Abdominal lymphoma and colon cancer status post colon resection and radiation. 4. Hypertension. 5. Chronic right eye blindness. 6. Gastroesophageal reflux disease. 7. Vitamin B12 deficiency, receiving shots every Tuesday per his primary care physician. PAST SURGICAL HISTORY: 1. Bilateral carotid endarterectomy. 2. Partial colectomy in 1984. SOCIAL HISTORY: He quit smoking in 1984. He does not use smokeless tobacco. He lives with his , but has children that are close and very active in his care. They deny any illicit drug use, any alcohol use. He is retired from the [employer], he was in the [place]. FAMILY HISTORY: Father had heart disease, in his 60s. They do have a history of hypertension. ALLERGIES: No known drug allergies. HOME MEDICATIONS: A list will be obtained by the nursing staff. Once verified, will review and restart as appropriate. REVIEW OF SYSTEMS: Discussed with patient and children with pertinent positives stated in the HPI. He denied any syncope or dizziness, any chest pain or palpitations, shortness of breath, cough, any fevers or chills, any nausea, vomiting, any constipation, black or bloody vomitus or stools, any hematuria, dysuria. He does report some urinary incontinence, which has been present for many years. LABS: WBC is 9.2 with a hemoglobin of 12.5, hematocrit 40.1, and platelets of 182,000. Sodium 143, potassium 4.5, BUN 24, creatinine 1.8, with a glucose of 103. Urinalysis is essentially negative. EKG reveals sinus rhythm with a right bundle branch block, which is present on prior EKGs. ASSESSMENT AND PLAN: 1. Altered mental status. Causes could be multifactorial. He does have a history of dementia. He has also recently been treated for upper respiratory. He will be admitted, placed on neuro checks. We will trend labs. 2. Generalized weakness with inability to stand and walk. We will consult Physical Therapy. He will be placed on fall precautions. 3. Hypertension. Blood pressures have begun to decrease using hydralazine. We will order hydralazine 10 q.4 hours p.r.n. systolic blood pressure greater than 160. Continue his home medications once they are verified. 4. Chronic kidney disease stage 3. We will trend labs daily. Renal dose medications as appropriate. 5. History of transient ischemic attack and cerebrovascular accident. Aware. 6. Diarrhea. The patient is unsure about his last bowel movement. We will obtain a flat and upright of the abdomen. 7. History of vitamin B12 deficiency. 8. History of colon cancer and abdominal lymphoma status post partial colectomy. Aware. We will obtain a chest x-ray. We will continue his home medications as appropriate. Check a ferritin, folate, TSH and vitamin B12. Check CBC, CMP and magnesium in the morning. Will consult Physical Therapy. He will be placed on telemetry. Check bladder scan. Patient was evaluated, plan was discussed with Dr. Aguilar. Further treatments pending hospital course. Dictated by RAMON Swanson for Neil Aguilar MD cc: KimberlyRAMON Barnes MD
--- NOTE | 2019-02-28 01:58 | HISTORY AND PHYSICAL ---
ADDENDUM: Patient seen and examined by myself. Full note dictated and discussed with nurse practitioner. Patient presented to the hospital via his children noting that he is acutely confused, disoriented. They state normally he is awake, alert, lives at home by himself, takes care of himself and monitors his own medications. However, over the last 2 days, he has been increasingly confused, disoriented, been having urinary accidents. We are going to admit him to the hospital. Blood pressures were markedly elevated initially at 226/120. Currently, they are improving at 200/100. He does have a history of high blood pressure. I am certainly concerned that he may have a urinary tract infection. We are going to treat for same, send for a culture and will follow. cc: Neil Aguilar MD
[2019-02-28 05:09] LABS: BASO# 0.04 X1000 (0.0-0.2); BASO% 0.4 % (0.0-0.8); EOS# 0.33 X1000 (0.0-0.7); EOS% 3.5 % (0.0-10.0); HEMATOCRIT 36.9 % (42.0-52.0); HEMOGLOBIN 11.5 g/dL (14.0-18.0); IMM GRAN# 0.03 X1000 (0.0-0.04); IMM GRAN% 0.3 % (0.0-0.5); LYMPH# 3.62 X1000 (1.2-3.4); LYMPH% 38.7 % (20.5-51.1); MCH 29.8 PG (27-31); MCHC 31.2 g/dL (33-37); MCV 95.6 FL (81-99); MONO# 0.71 X1000 (0.11-0.59); MONO% 7.6 % (1.7-9.3); MPV 8.7 FL (7.4-10.4); NEUT# 4.63 X1000 (1.4-6.5); NEUT% 49.5 % (42.2-75.2); PLT 161 X1000 (130-400); RBC 3.86 XMIL (4.7-6.1); RDW 13.6 % (11.5-14.5); WBC 9.36 X1000 (4.8-10.8)
[2019-02-28 05:21] LABS: ALBUMIN 3.3 g/dL (3.5-5.0); CALCIUM 8.4 mg/dL (8.8-10.2); CREATININE 1.6 mg/dL (0.7-1.2); MAGNESIUM 1.5 mg/dL (1.5-2.7); TOTAL BILIRUBIN 0.5 mg/dL (0.20-1.00); TOTAL PROTEIN 5.7 g/dL (6.3-8.3)
[2019-02-28] MEDS ORDERED: NS 1,000 ML IV SCH (07:30)
[2019-02-28] MEDS ORDERED: NORVASC PO SCH (09:00)
[2019-02-28] MEDS: COZAAR PO SCH (09:43)
[2019-02-28] MEDS: ARICEPT PO SCH (09:43)
[2019-02-28] MEDS: ROCEPHIN 1 GM in NS 50 ML IV SCH (09:43)
[2019-02-28] MEDS: NEURONTIN PO SCH ×2 (09:43→20:14)
[2019-02-28] MEDS: ASPIRIN EC PO SCH (09:44)
[2019-02-28] MEDS: LOPRESSOR PO SCH (09:44)
--- NOTE | 2019-02-28 10:21 | Diag Imaging Result Doc PS360 ---
EXAM: MRI BRAIN W/O CONTRAST HISTORY: acute delirium TECHNIQUE: Multisequence, multiplanar images of the brain were obtained without contrast as per standard protocol. COMPARISON: None. FINDINGS: There are no extra-axial collections. Diffusion images show no evidence for acute infarct. There is no evidence for hemorrhage. There is marked cerebral atrophy with ex vacuo dilatation of ventricles. There is downward displacement of the cerebellar tonsils which may indicate Chiari I malformation or intracranial hypotension. Correlate clinically. There is extensive deep white matter T2 hyperintensity most compatible with microangiopathy. IMPRESSION: 1.Downward displacement of the cerebellar tonsils may indicate Chiari I malformation or intracranial hypotension. Correlate clinically. 2.Marked cerebral atrophy and microvascular disease. Electronically signed by Adriana Davila 02/28/2019 10:19 AM
--- NOTE | 2019-02-28 19:48 | PROGRESS NOTE ---
DATE: 02/28/2019 SUBJECTIVE: Patient's daughter notes that he is still confused and disoriented at times. His speech otherwise is regular. He has no focal deficit. PHYSICAL EXAMINATION: Vital signs: Temperature 97.8 degrees, pulse 80, respiratory rate 18, BP 160/88 to 180/75. General: Patient is awake. He is in no distress. He is very pleasant to talk with, answers questions, although sometimes not appropriately. HEENT: Normocephalic. Neck: Supple. Cardiovascular: Regular rate. Chest: Clear. Abdomen: Soft, nondistended. Extremities: Moves all extremities. Neurologic: No changes. ASSESSMENT: 1. Acute delirium of undetermined origin. 2. Generalized weakness. 3. Hypertension. 4. Chronic kidney disease, stage 3, stable. 5. History of transient ischemic attacks. PLAN: We are going to check an MRI, place him on intravenous fluids, place him on antibiotics until his urine culture is clear, and will follow. cc: Neil Aguilar MD
[2019-03-01] MEDS: NORVASC PO SCH (08:35)
[2019-03-01] MEDS: ARICEPT PO SCH (08:35)
[2019-03-01] MEDS: NEURONTIN PO SCH ×2 (08:35→20:40)
[2019-03-01] MEDS: ROCEPHIN 1 GM in NS 50 ML IV SCH (08:35)
[2019-03-01] MEDS: LOPRESSOR PO SCH (08:36)
[2019-03-01] MEDS: COZAAR PO SCH (08:36)
[2019-03-01] MEDS: ASPIRIN EC PO SCH (08:36)
--- NOTE | 2019-03-01 09:24 | PROGRESS NOTE ---
DATE: 03/01/2019 SUBJECTIVE: Daughter notes that he is feeling a little bit better. She is unaware if physical therapy came by yesterday. Does note that he is starting to feel a little bit better. States that he seems a little bit stronger. His memory seems a little bit better. PHYSICAL EXAMINATION: Vital Signs: Reviewed. Temperature 97.7 degrees, pulse 70, respiratory rate 18, BP 172/72. General: Patient is awake, alert. He does seem mentally stronger today. He is able to answer questions. He also appears a little physically stronger. HEENT: Normocephalic. Neck: Supple. Cardiovascular: Regular rate. Chest: Clear and unlabored. Abdomen: Soft and nondistended. Extremities: Moves all extremities. Neurologic: No focal changes in his lower or upper extremities. Mentally, he does appear to answer questions a little quicker and a little more responsive. ASSESSMENT: 1. Acute delirium of undetermined origin. Currently, his urine culture is pending. We are going to continue antibiotics today. We are going to stop his intravenous fluids. 2. Dementia. His MRI does show chronic microvascular changes. 3. Hypertension. Blood pressures are still a little elevated. We are going to increase Norvasc to 10 mg. 4. History of colon cancer and lymphoma, status post partial colectomy. PLAN: We are going to continue the patient in the hospital today. Continue antibiotics until his culture is negative. Continue physical therapy and hopefully, tomorrow, can either discharge home or to rehab. cc: Neil Aguilar MD
[2019-03-02] MEDS: NORVASC PO SCH (09:13)
[2019-03-02] MEDS: NEURONTIN PO SCH ×2 (09:13→20:53)
[2019-03-02] MEDS: ASPIRIN EC PO SCH (09:13)
[2019-03-02] MEDS: COZAAR PO SCH (09:14)
[2019-03-02] MEDS: LOPRESSOR PO SCH (09:14)
[2019-03-02] MEDS: ARICEPT PO SCH (09:14)
[2019-03-02] MEDS: ROCEPHIN 1 GM in NS 50 ML IV SCH (09:15)
[2019-03-03] MEDS: COZAAR PO SCH (10:07)
[2019-03-03] MEDS: NEURONTIN PO SCH ×2 (10:07→20:48)
[2019-03-03] MEDS: ASPIRIN EC PO SCH (10:07)
[2019-03-03] MEDS: LOPRESSOR PO SCH (10:08)
[2019-03-03] MEDS: NORVASC PO SCH (10:08)
[2019-03-03] MEDS: ROCEPHIN 1 GM in NS 50 ML IV SCH (10:08)
[2019-03-03] MEDS: ARICEPT PO SCH (10:08)
--- NOTE | 2019-03-04 02:18 | PROGRESS NOTE ---
DATE: 03/03/2019 SUBJECTIVE: The patient himself has no complaints. The family notes that he did have some trouble sleeping over the past 2 nights but he slept very well last night. Notes that he ate better last night as well. PHYSICAL EXAMINATION: Vital Signs: Temperature 98 degrees, pulse 80, respiratory rate 18, BP 141/90. General: Patient is pleasant. He is in no distress. Cardiovascular: Regular rate. Chest: Clear. Abdomen: Soft. Extremities: Moves all extremities although still has generalized weakness. ASSESSMENT: 1. Generalized weakness with adult failure to thrive. 2. Chronic kidney disease stage 3. 3. Acute delirium, appears to have resolved. 4. Chronic diarrhea. 5. Vitamin B12 deficiency. 6. Hypertension. PLAN: We are going to continue his Norvasc 5, losartan 100. Continue physical therapy and await the opportunity to transition to rehab. cc: Neil Aguilar MD
[2019-03-04] MEDS ORDERED: TIMOLOL MALEATE ophthalmic (eye) SCH (09:00)
[2019-03-04] MEDS: LOPRESSOR PO SCH (09:49)
[2019-03-04] MEDS: NEURONTIN PO SCH ×2 (09:49→21:36)
[2019-03-04] MEDS: ASPIRIN EC PO SCH (09:49)
[2019-03-04] MEDS: ROCEPHIN 1 GM in NS 50 ML IV SCH (09:49)
[2019-03-04] MEDS: NORVASC PO SCH (09:49)
[2019-03-04] MEDS: ARICEPT PO SCH (09:49)
[2019-03-04] MEDS: TIMOPTIC 0.5% OPH SOLUTION LEFT EYE SCH ×2 (10:03→21:36)
[2019-03-04] MEDS: XALATAN 0.005% OPH SOLN LEFT EYE SCH (10:03)
[2019-03-04] MEDS: COZAAR PO SCH (10:03)
--- NOTE | 2019-03-04 12:20 | PROGRESS NOTE ---
DATE: 03/04/2019 SUBJECTIVE: Patient has no complaints. PHYSICAL EXAMINATION: Vital Signs: Reviewed. Temp 97.9 degrees, pulse 84, respiratory rate 18, BP 154/64. General: Patient is pleasant. He is in no distress. HEENT: Normocephalic. Neck: Supple. Cardiovascular: Regular rate. No murmurs. Chest: Clear. Abdomen: Soft. Extremities: Moves all extremities, although generalized weakness. ASSESSMENT: 1. Generalized weakness with adult failure to thrive. 2. Hypertension. 3. Frequent falls. 4. Chronic kidney disease stage 3. 5. History of colon cancer and abdominal lymphoma. PLAN: We will continue patient in the hospital. Continue to follow and await the ability to transfer him to rehab. cc: Neil Aguilar MD
[2019-03-05] MEDS: COZAAR PO SCH (08:23)
[2019-03-05] MEDS: ASPIRIN EC PO SCH (08:23)
[2019-03-05] MEDS: NEURONTIN PO SCH ×2 (08:23→21:15)
[2019-03-05] MEDS: ARICEPT PO SCH (08:24)
[2019-03-05] MEDS: NORVASC PO SCH (08:24)
[2019-03-05] MEDS: XALATAN 0.005% OPH SOLN LEFT EYE SCH ×2 (08:24→18:15)
[2019-03-05] MEDS: LOPRESSOR PO SCH (08:24)
--- NOTE | 2019-03-05 11:14 | DISCHARGE SUMMARY ---
ADMISSION DATE: 02/27/2019 DISCHARGE DATE: 03/05/2019 DISCHARGE DIAGNOSES: 1. Volume depletion, resolved. 2. Generalized weakness with frequent falls. 3. Hypertension. 4. History of cerebrovascular accidents. 5. Diarrhea, resolved. 6. History of B12 deficiency. 7. History of colon cancer and lymphoma, status post partial colectomy. 8. Acute delirium, resolved, likely secondary to volume depletion. 9. Chronic kidney disease stage 3. 10. Reflux. CONSULTATIONS: None. PROCEDURES: None. BRIEF HOSPITAL COURSE: The patient is an 88-year-old male who presented to the hospital with generalized weakness and acute mental status changes. After IV fluids and antibiotics for a few days, his mental status resolved and he is back to his baseline. However, he continues to be very weak and fatigued and unable to stand. He has improved over the last day or two. He is actually able to walk with assistance with a walker, but is still too weak to be able to go home. DISPOSITION: The patient will be discharged to rehab instead of going directly home. DISCHARGE MEDICATIONS: He will continue his home medications of Norvasc 10 mg and losartan 100 mg. TIME SPENT: Greater than 30 minutes were spent in total care. cc: Neil Aguilar MD
[2019-03-05] MEDS: TIMOPTIC 0.5% OPH SOLUTION LEFT EYE SCH ×2 (18:15→21:15)
[2019-03-06 07:46] VITALS: BP 156/58
[2019-03-06] MEDS: ARICEPT PO SCH (09:48)
[2019-03-06] MEDS: ASPIRIN EC PO SCH (09:48)
[2019-03-06] MEDS: NORVASC PO SCH (09:48)
[2019-03-06] MEDS: COZAAR PO SCH (09:48)
[2019-03-06] MEDS: LOPRESSOR PO SCH (09:48)
[2019-03-06] MEDS: NEURONTIN PO SCH (09:48)
--- NOTE | 2019-03-06 21:47 | DISCHARGE SUMMARY ---
ADMISSION DATE: 02/27/2019 DISCHARGE DATE: 03/06/2019 ADDENDUM: The patient seen and examined by myself. Full note dictated and discussed with the nurse practitioner. On discharge the patient is awake, alert, currently in no distress. Hopefully he can transition to rehab later this afternoon. cc: Neil Aguilar MD
== END 2019-03-06 12:43 | disposition swing bed (61) ==
LOC: P.ED 12:17 → P.MEDSURG 20:54 → INTOOBSV 20:54 → SUATTDRO 20:54 → P.MEDSURG 03-02 17:48
PROVIDERS: ATTEND Internal Medicine